=== PATIENT | female | born 1935 | race Caucasian/White ===

== ENCOUNTER 2019-10-03 11:54 | Emergency (ER) | payer MEDICAID ==
[~2019-10-03] VITALS: Ht 160 cm; Wt 52.2 kg
--- NOTE | 2019-10-03 11:54 | NUR ---
Patient BIBA ALS accompanied by Cuca AMADOR, transferred to bed 4. RN evaluating patient at bedside.
[2019-10-03 11:55] VITALS: BP 126/34
--- NOTE | 2019-10-03 12:03 | NUR ---
Dr. Garibay is evaluating the patient at bedside.
--- NOTE | 2019-10-03 12:04 | NUR ---
84/F FROM EMS FOR HYPOTENSION. EMS REPORTS THAT PATIENT TOOK HER RX OF LISINOPRIL AND WAS DOING LAUNDRY AND HAD A NEAR SYNCOPAL EPISODE. PT WAS RESPONSIVE TO PREHOSPITAL FLUID BOLUS CURRENT BP IS 120SBP. PMHX--HTN NKDA
--- NOTE | 2019-10-03 12:07 | NUR ---
SPOKE WITH ELIZABETH--HEATHER ASTORGA. UPDATED ON PT CONDITION. CONTACT INFO--[phone].
[2019-10-03] MEDS ORDERED: NACL 0.9% 1,000 ML IV ONE (12:10)
--- NOTE | 2019-10-03 12:26 | NUR ---
elevator technician at bedside.
[2019-10-03 12:27] LABS: BASOPHILS % (AUTO) 0.5 % (0.0-2.0); EOSINOPHILS # (AUTO) 0.1 K/uL (0-0.4); EOSINOPHILS % (AUTO) 0.7 % (0.0-4.0); HEMATOCRIT 32.8 % (36-48); LYMPHOCYTES # (AUTO) 1.5 K/uL (2.5-16.5); LYMPHOCYTES % (AUTO) 19.7 % (20.5-51.1); MEAN CORPUSCULAR HEMOGLOBIN 31 pg (27-31); MEAN CORPUSCULAR HGB CONC 33 g/dL (33-37); MEAN CORPUSCULAR VOLUME 91.4 fL (80-94); MONOCYTES # (AUTO) 0.7 K/uL (0.8-1.0); NEUTROPHILS # (AUTO) 5.2 K/uL (1.8-7.7); NEUTROPHILS % (AUTO) 69.1 % (42.2-75.2); PLATELET COUNT (AUTO) 253 K/uL (140-450); RED BLOOD CELL COUNT(AUTO) 3.59 MIL/uL (4.20-5.40); RED CELL DISTRIBUTION WIDTH 14.6 % (11.6-13.7); WHITE BLOOD COUNT (AUTO) 7.5 K/uL (4.8-10.8)
[2019-10-03 12:54] LABS: ALBUMIN 3.2 g/dL (3.4-5.0); ANION GAP 10.6 (8-16); ASPARTATE AMINOTRANSFERASE 21 U/L (15-37); CARBON DIOXIDE 27.8 mmol/L (21-32); CHLORIDE 100 mmol/L (98-107); CREATININE 0.9 mg/dL (0.6-1.3); GLUCOSE 112 mg/dL (74-106); POTASSIUM 4.4 mmol/L (3.5-5.1); SODIUM SERUM 134 mmol/L (136-145); TOTAL BILIRUBIN 0.3 mg/dL (0.0-1.0); UREA NITROGEN, BLOOD 19 mg/dL (7-18)
--- NOTE | 2019-10-03 14:46 | NUR ---
SPOKE WITH NIVETO ROMERO, SHE SAID SHE WORKS [employer]. 20-30 MIN AWAY AND JUST TO LET HER KNOW WHEN SHE IS READY TO BE PICKED UP.
--- NOTE | 2019-10-03 15:20 | NUR ---
SPOKE TO ELIZABETH ROMERO INFORMED THAT PATIENT IS READY FOR D/C--SHE IS [employer] 20-30MINS AWAY.
[2019-10-03 16:23] VITALS: BP 121/64
--- NOTE | 2019-10-03 16:24 | NUR ---
Patient discharged with v/s stable. Written and verbal after care instructions given and explained. Patient verbalized understanding. Ambulatory with steady gait. All questions addressed prior to discharge. Advised to follow up with PMD.
== END 2019-10-03 16:24 | disposition home or self-care (01) ==
LOC: MED 11:54
DX: R55 Syncope and collapse (principal); I10 Essential (primary) hypertension
CPT/HCPCS: 36415; 71045; 80053; 84484; 85025; 93005; 96360; 99285; J7030; Q0092

== ENCOUNTER 2020-07-19 11:56 | Emergency (ER) | payer MEDICAID ==
[~2020-07-19] VITALS: Ht 165.1 cm; Wt 63.5 kg
[2020-07-19 12:01] VITALS: BP 104/48
--- NOTE | 2020-07-19 12:05 | NUR ---
84 YEAR OLD FEMALE BIBA FROM HOME FOR BEING UNRESPONSIVE. PER EMS UPON ARRIVAL PT WAS UNRESPONSIVE, HR IN 40'S WITH AGONAL BREATHING. IN ROUTE PT WAS BEING BVM, THEN EMS STOPPED AND PT WAS ACTING NORMAL. PT ARRIVED, AOX4, BREATHING EVEN AND UNLABORED, SPO2 99% ON RA. BS 130. PT SKIN WARM AND DRY. PT ON MONITOR VS STABLE, ERMD AWARE OF PT STATUS. PMH - HTN ALLERGIES - NKA
[2020-07-19 12:52] LABS: BASOPHILS % (AUTO) 0.4 % (0.0-2.0); EOSINOPHILS # (AUTO) 0.1 K/uL (0-0.4); EOSINOPHILS % (AUTO) 1.4 % (0.0-4.0); HEMATOCRIT 33.9 % (36-48); HEMOGLOBIN 11.3 g/dL (12.0-16.0); MEAN CORPUSCULAR HEMOGLOBIN 31 pg (27-31); MEAN CORPUSCULAR HGB CONC 33 g/dL (33-37); MEAN CORPUSCULAR VOLUME 91.9 fL (80-94); MONOCYTES # (AUTO) 1.2 K/uL (0.8-1.0); MONOCYTES % (AUTO) 16.1 % (1.7-9.3); NEUTROPHILS # (AUTO) 5.1 K/uL (1.8-7.7); NEUTROPHILS % (AUTO) 68.1 % (42.2-75.2); PLATELET COUNT (AUTO) 211 K/uL (140-450); RED CELL DISTRIBUTION WIDTH 14.3 % (11.6-13.7); WHITE BLOOD COUNT (AUTO) 7.4 K/uL (4.8-10.8)
[2020-07-19 13:16] LABS: ALBUMIN 3.5 g/dL (3.4-5.0); ANION GAP 11.6 (8-16); ASPARTATE AMINOTRANSFERASE 24 U/L (15-37); CARBON DIOXIDE 26.4 mmol/L (21-32); CHLORIDE 99 mmol/L (98-107); GLUCOSE 133 mg/dL (74-106); SODIUM SERUM 132 mmol/L (136-145); TOTAL BILIRUBIN 0.3 mg/dL (0.0-1.0); UREA NITROGEN, BLOOD 32 mg/dL (7-18)
--- NOTE | 2020-07-19 13:38 | NUR ---
Patient transferred to bed 9 for further care. RN evaluating patient at bedside.
--- NOTE | 2020-07-19 13:48 | NUR ---
Yasmin giles in [facility] - 07/19/20 at 1508 by MEDJJ LINA AND BRYCE SWAB SENT TO LAB
[2020-07-19] MEDS ORDERED: NACL 0.9% 1,000 ML IV ONE (15:00)
--- NOTE | 2020-07-19 15:08 | NUR ---
COVID AND BRYCE SWAB SENT TO LAB
[2020-07-19 15:45] LABS: APPEARANCE,URINE HAZY (CLEAR); BILIRUBIN,URINE NEGATIVE (NEGATIVE); BLOOD, URINE 2+ (NEGATIVE); COLOR,URINE YELLOW (YELLOW); LEUKOCYTE ESTERASE ,URINE 1+ (NEGATIVE); NITRITE, URINE POSITIVE (NEGATIVE); UGLUCOSE NEGATIVE (NEGATIVE)
[2020-07-19 16:00] VITALS: BP 104/48
--- NOTE | 2020-07-19 16:00 | NUR ---
Patient discharged with v/s stable. Written and verbal after care instructions about syncope given and explained in wolof. Patient verbalized understanding. Ambulatory with steady gait. All questions addressed prior to discharge. Advised to follow up with PMD.
[2020-07-19 16:50] LABS: RBC,URINE 11-20 (MOD) /HPF (0-5)
== END 2020-07-19 16:00 | disposition home or self-care (01) ==
LOC: MED 11:56
DX: R55 Syncope and collapse (principal); Z20.828 Contact with and (suspected) exposure to other viral communicable diseases; D64.9 Anemia, unspecified; I10 Essential (primary) hypertension
CPT/HCPCS: 70450; 71045; 80053; 81001; 84484; 85025; 87086; 87426; 93005; 96360; 99285; U0003; J7030

== ENCOUNTER 2020-07-24 09:22 | Emergency (ER) | payer MEDICAID ==
[~2020-07-24] VITALS: Ht 157.5 cm; Wt 49.9 kg
[2020-07-24 09:33] VITALS: BP 97/48
[2020-07-24] MEDS ORDERED: NACL 0.9% 500 ML IV SCH (09:50)
[2020-07-24 11:08] LABS: BASOPHILS % (AUTO) 0.2 % (0.0-2.0); EOSINOPHILS % (AUTO) 0.1 % (0.0-4.0); HEMATOCRIT 32.6 % (36-48); HEMOGLOBIN 10.9 g/dL (12.0-16.0); LYMPHOCYTES # (AUTO) 0.6 K/uL (2.5-16.5); LYMPHOCYTES % (AUTO) 12.2 % (20.5-51.1); MEAN CORPUSCULAR HEMOGLOBIN 31 pg (27-31); MEAN CORPUSCULAR HGB CONC 34 g/dL (33-37); MEAN CORPUSCULAR VOLUME 90.8 fL (80-94); MONOCYTES # (AUTO) 0.4 K/uL (0.8-1.0); MONOCYTES % (AUTO) 9.5 % (1.7-9.3); NEUTROPHILS # (AUTO) 3.7 K/uL (1.8-7.7); PLATELET COUNT (AUTO) 153 K/uL (140-450); RED BLOOD CELL COUNT(AUTO) 3.59 MIL/uL (4.20-5.40); RED CELL DISTRIBUTION WIDTH 14.4 % (11.6-13.7); WHITE BLOOD COUNT (AUTO) 4.7 K/uL (4.8-10.8)
[2020-07-24 11:13] LABS: PROTHROMBIN TIME 9.8 secs (10.8-13.4)
[2020-07-24 11:29] LABS: ANION GAP 13.7 (8-16); CARBON DIOXIDE 23.2 mmol/L (21-32); CHLORIDE 98 mmol/L (98-107); POTASSIUM 3.9 mmol/L (3.5-5.1); SODIUM SERUM 131 mmol/L (136-145)
[2020-07-24 11:30] LABS: ALBUMIN 3.2 g/dL (3.4-5.0); ASPARTATE AMINOTRANSFERASE 38 U/L (15-37); CREATININE 0.9 mg/dL (0.6-1.3); GLUCOSE 128 mg/dL (74-106); TOTAL BILIRUBIN 0.3 mg/dL (0.0-1.0); UREA NITROGEN, BLOOD 24 mg/dL (7-18)
[2020-07-24 12:28] LABS: BILIRUBIN,URINE NEGATIVE (NEGATIVE); BLOOD, URINE 2+ (NEGATIVE); COLOR,URINE YELLOW (YELLOW); LEUKOCYTE ESTERASE ,URINE 1+ (NEGATIVE); NITRITE, URINE NEGATIVE (NEGATIVE); UGLUCOSE NEGATIVE (NEGATIVE)
[2020-07-24 12:46] LABS: APPEARANCE,URINE HAZY (CLEAR)
[2020-07-24 15:30] VITALS: BP 128/60
== END 2020-07-24 15:32 | disposition home or self-care (01) ==
LOC: MED 09:22
DX: R41.82 Altered mental status, unspecified (principal); R68.0 Hypothermia, not associated with low environmental temperature; I10 Essential (primary) hypertension
CPT/HCPCS: 36415; 36600; 71045; 80053; 81001; 82803; 83605; 83880; 84484; 85025; 85610; 85730; 87040; 87086; 93005; 99285

== ENCOUNTER 2020-07-28 09:15 | Inpatient (IN) | payer MEDICAID, SELFPAY ==
[~2020-07-28] VITALS: Ht 147.3 cm; Wt 45.4 kg
[2020-07-28 09:17] VITALS: BP 102/52
[2020-07-28] MEDS ORDERED: NACL 0.9% 1,000 ML IV ONE (09:20)
[2020-07-28 09:48] LABS: BASOPHILS % (AUTO) 0.4 % (0.0-2.0); EOSINOPHILS % (AUTO) 0.1 % (0.0-4.0); HEMATOCRIT 34.6 % (36-48); HEMOGLOBIN 11.5 g/dL (12.0-16.0); LYMPHOCYTES # (AUTO) 0.8 K/uL (2.5-16.5); LYMPHOCYTES % (AUTO) 16.8 % (20.5-51.1); MEAN CORPUSCULAR HEMOGLOBIN 30 pg (27-31); MEAN CORPUSCULAR HGB CONC 33 g/dL (33-37); MEAN CORPUSCULAR VOLUME 90.1 fL (80-94); MONOCYTES # (AUTO) 0.5 K/uL (0.8-1.0); MONOCYTES % (AUTO) 10.1 % (1.7-9.3); NEUTROPHILS # (AUTO) 3.3 K/uL (1.8-7.7); NEUTROPHILS % (AUTO) 72.6 % (42.2-75.2); PLATELET COUNT (AUTO) 175 K/uL (140-450); RED BLOOD CELL COUNT(AUTO) 3.84 MIL/uL (4.20-5.40); RED CELL DISTRIBUTION WIDTH 14.2 % (11.6-13.7); WHITE BLOOD COUNT (AUTO) 4.6 K/uL (4.8-10.8)
--- NOTE | 2020-07-28 09:58 | NUR ---
84 YO F BIBA FROM HOME C/O LOW BLOOD PRESSURE AND DIFFICULTY AROUSING FROM SLEEP. PER PT, SHE EXPERIENCED BLURRING OF VISON X 10MINS THIS AM. PT TESTED COVID + LAST WEEK, BUT DENIES ANY SYMPTOMS AT THE MOMENT. IN ED, AOX4. GCS 15. BP IS 102/52. PT NOT IN ACUTE DISTRESS. BREATH SOUNDS CLEAR. NORMAL HEART RATE AND RHYTHM. PT RESTING IN BED COMFORTABLY, WITH 2 SIDERAILS UP. ERMD MADE AWARE OF PT STATUS. PMH: HTN NKA
--- NOTE | 2020-07-28 10:15 | NUR ---
PT UNABLE TO PRODUCE URINE SPECIMEN AT THIS TIME
[2020-07-28 11:02] LABS: ALBUMIN 3.2 g/dL (3.4-5.0); ANION GAP 11.9 (8-16); ASPARTATE AMINOTRANSFERASE 138 U/L (15-37); CARBON DIOXIDE 24.1 mmol/L (21-32); CHLORIDE 98 mmol/L (98-107); CREATININE 0.9 mg/dL (0.6-1.3); GLUCOSE 105 mg/dL (74-106); SODIUM SERUM 130 mmol/L (136-145); TOTAL BILIRUBIN 0.4 mg/dL (0.0-1.0); UREA NITROGEN, BLOOD 17 mg/dL (7-18)
[2020-07-28] MEDS ORDERED: cefTRIAXone 1,000 MG VIAL ONE (11:40)
--- NOTE | 2020-07-28 13:11 | NUR ---
NOVEL SWAB DONE. WALKED TO LAB.
[2020-07-28] MEDS ORDERED: ACETAMINOPHEN 325 MG TAB PO PRN (14:20)
[2020-07-28] MEDS ORDERED: POTASSIUM CHLORIDE 10 MEQ TABER PO PRN (14:20)
[2020-07-28] MEDS ORDERED: ONDANSETRON 4 MG/2 ML VIAL IM/IVP PRN (14:20)
[2020-07-28] MEDS ORDERED: DOCUSATE SODIUM 100 MG GELCAP PO PRN (14:20)
[2020-07-28] MEDS ORDERED: HYDROcodone/APAP 7.5/325 MG 1 TAB PO PRN (14:20)
[2020-07-28 15:28] LABS: PROTHROMBIN TIME 9.1 secs (10.8-13.4)
--- NOTE | 2020-07-28 15:51 | NUR ---
BRYCE SWAB DONE. WALKED TO LAB.
[2020-07-28] MEDS ORDERED: ALBUTEROL HFA MDI 90 MCG/ACTUATION 8 GM INH PRN (16:00)
[2020-07-28 16:13] LABS: CHOL/HDL RATIO 2.5 (1-4.5); FREE T4 (FREE THYROXINE) 1.29 ng/dL (0.76-1.46); MAGNESIUM 2.1 mg/dL (1.8-2.4); PHOSPHORUS 3.5 mg/dL (2.5-4.9); THYROID STIMULATING HORMONE 2.23 uIU/mL (0.34-3.74)
--- NOTE | 2020-07-28 16:15 | NUR ---
Ultrasound at bedside.
--- NOTE | 2020-07-28 19:12 | NUR ---
REPORT GIVEN TO CHAN CARRERA. ALL CARE TRANSFERRED AT THIS TIME.
--- NOTE | 2020-07-28 19:14 | NUR ---
RECEIVED REPORT FROM ANNABELLE GILES
--- NOTE | 2020-07-28 19:30 | NUR ---
PT RESTING IN BED, PT ON BEDSIDE MONITOR. DENINES ANY DISTRESS AT THIS TIME. PT'S TEMP 99.9 WILL MEDICATE FOR ELEVATED TEMP
--- NOTE | 2020-07-28 19:39 | NUR ---
MEDICATED WITH TYLENOL 650MG FOR TEMP 99.9
--- NOTE | 2020-07-28 19:59 | NUR ---
FAMILY FOR BED 2 CALLED TO LEAVE THEIR NUMBER FOR ANY UPDATES. HEATHER [phone]
--- NOTE | 2020-07-28 20:28 | NUR ---
PT PROVIDED WITH DINNER TRAY
--- NOTE | 2020-07-28 21:51 | NUR ---
TEMP 98.1 NOW. PT ATE 60% OF HER DINNER TRAY
--- NOTE | 2020-07-28 22:20 | NUR ---
PT DOES HAVE A HEADACHE WILL MEDICATE ORDERED
[2020-07-28 22:30] VITALS: BP 144/75
--- NOTE | 2020-07-28 22:45 | NUR ---
Patient will be admitted to care of [facility]. Admited to TELE. Will go to room 101A. Belongings list completed. Report to ALEJANDRO GILES.
--- NOTE | 2020-07-28 22:50 | NUR ---
ADMITTED THIS 84 YEAR OLD FEMALE FROM ER PER COURTNEY WITH CC OF ALOC AND LOW BP, PT AAOX4, ABLE TO MAKE NEEDS KNOWN, ON DROPLET PRECAUTION FOR COVID POSITIVE, VITAL SIGNS STABLE, SR ON TELE, DENIES ANY PAIN, ORIENTED TO ROOM AND CALL LIGHT, SAFETY MEASURES IN PLACE, CALL LIGHT WITHIN REACH.
[2020-07-29] VITALS: BP 125/56
--- NOTE | 2020-07-29 02:30 | NUR ---
SEEN PT SLEEPING, NO SIGNS OF RESP DISTRESS, MONITORED CLOSELY.
[2020-07-29 04:00] VITALS: BP 133/62
--- NOTE | 2020-07-29 05:10 | NUR ---
PT AMBULATED TO BR WITH MINIMAL ASSIST, VOIDED FREELY, PT WENT BACK TO SLEEP, MONITORED CLOSELY.
[2020-07-29 07:01] LABS: BASOPHILS % (AUTO) 0.3 % (0.0-2.0); EOSINOPHILS % (AUTO) 0.2 % (0.0-4.0); HEMATOCRIT 31.9 % (36-48); HEMOGLOBIN 10.9 g/dL (12.0-16.0); LYMPHOCYTES # (AUTO) 0.7 K/uL (2.5-16.5); LYMPHOCYTES % (AUTO) 15.4 % (20.5-51.1); MEAN CORPUSCULAR HEMOGLOBIN 31 pg (27-31); MEAN CORPUSCULAR HGB CONC 34 g/dL (33-37); MEAN CORPUSCULAR VOLUME 89.7 fL (80-94); MONOCYTES # (AUTO) 0.4 K/uL (0.8-1.0); MONOCYTES % (AUTO) 9.5 % (1.7-9.3); NEUTROPHILS # (AUTO) 3.2 K/uL (1.8-7.7); NEUTROPHILS % (AUTO) 74.6 % (42.2-75.2); PLATELET COUNT (AUTO) 170 K/uL (140-450); RED BLOOD CELL COUNT(AUTO) 3.56 MIL/uL (4.20-5.40); RED CELL DISTRIBUTION WIDTH 14.2 % (11.6-13.7); WHITE BLOOD COUNT (AUTO) 4.3 K/uL (4.8-10.8)
--- NOTE | 2020-07-29 07:15 | NUR ---
HANDOFF REPORT FROM BREAKFAST BAR ATTENDANT RN. POC REVIEWED AND DISCUSSED. PT IS ALERT, FOLLOWS SIMPLE COMMAND. DENIES PAIN. NO SOB NOTED. PT ON ROOM AIR. AFEBRILE. FALL PRECAUTION INITIATED. CALL LIGHT WITHIN REACH. WILL CONTINUE TO MONITOR.
--- NOTE | 2020-07-29 07:30 | NUR ---
PT AWAKE, NO SIGNS OF DISTRESS, REPORT GIVEN TO RN TAMMIE FOR CONTINUITY OF CARE.
[2020-07-29 07:34] LABS: CARBON DIOXIDE 22.9 mmol/L (21-32); CHLORIDE 104 mmol/L (98-107); CREATININE 0.8 mg/dL (0.6-1.3); GLUCOSE 82 mg/dL (74-106); POTASSIUM 3.9 mmol/L (3.5-5.1); SODIUM SERUM 137 mmol/L (136-145); UREA NITROGEN, BLOOD 18 mg/dL (7-18)
[2020-07-29 08:00] VITALS: BP 145/94
[2020-07-29 08:08] LABS: T4 (THYROXINE) 8.1 ug/dL (4.5-12.0)
--- NOTE | 2020-07-29 09:00 | NUR ---
PHYSICAL THERAPY DONE. PT TOLERATED WELL WITH NO SIGNS OF DISTRESS.
--- NOTE | 2020-07-29 09:08 | NUR ---
PATIENT HAS BEEN SCREENED AND CATEGORIZED MODERATE NUTRITION RISK. PATIENT WILL BE SEEN WITHIN 3-5 DAYS OF ADMISSION. 07/31/20 08/02/[address]
[2020-07-29] MEDS: AZITHROMYCIN 250 MG TAB PO SCH (09:21)
[2020-07-29] MEDS: ZINC SULF 220 MG CAP PO SCH (09:21)
[2020-07-29] MEDS: ASCORBIC ACID 500 MG TAB PO SCH (09:21)
--- NOTE | 2020-07-29 09:27 | NUR ---
SOCIAL WORK NOTE: Patient's Orientation Unable To Assess Information Provided By HEATHER ONEILL Comments SW WAS UNABLE TO MEET PATIENT AT BEDSIDE. SW COMPLETED ASSESSMENT WITH PATIENT'S NIECE. Data Governance Consultant, Realtionship and Phone Number HEATHER ONEILL [phone] Healthcare Power of Grounds Crew Supervisor No Does Patient Have a POLST No Identifying Problems No Social Work Triggers Is A Social Work Consult Needed No Mandate Report Filed No Explanation Of Identifying Problems PATIENT IS AN 84-YEAR-OLD FEMALE ADMITTED FOR METABOLIC ENCEPHALOPATHY. PATIENT HAS PMHX OF HYPERTENSION. Admitted From Home Pre-Admission Level Of Functioning Status Independent/Ambulatory Prior Resources/Services Used In Last 12 Months No Prior Resources Used Prior DME No Prior DME Used Dialysis Comments N/A Living Situation Lives With Family House Patient Had Caregiver No Home Support No Caregiver Issues Financial Issues No Known Financial Issue Referral To The Financial Counselor Needed No Factors/Needs No D/C Needs Identified Pt/Rep Participated In Discharge Plan Yes Patient/Family Agress With Discharge Plan Yes Discharge Plan Comments TENTATIVE DISCHARGE PLAN IS FOR PATIENT TO RETURN HOME. DC Plan Status Initiated
[2020-07-29 12:00] VITALS: BP 114/69
--- NOTE | 2020-07-29 12:00 | NUR ---
PT IS RESTING AND CALM. ASSISTED PT TO USE BED LONGO. PT DENIES DISCOMFORT. KEPT PT ON ISOLATION PRECAUTION.
--- NOTE | 2020-07-29 12:01 | NUR ---
DISCHARGE PLANNING: THIS IS AN 84 Y/O FEMALE PATIENT BIBA FROM HOME DUE TO ALTERED MENTAL STATUS. PAST MEDICAL HISTORY INCLUDE HTN. INITIAL DIAGNOSIS OF METABOLIC ENCEPHALOPATHY, POSSIBLE COVID 19, PNA. CURRENT LABS INCLUDE WBC 4.3, H/H 10.9/31.9, BNP 611. COVID RAPID POSITIVE, PCR PENDING. ON ROCEPHIN, AZITHROMYCIN, DECADRON AND HEPARIN. ON ROOM AIR. O2 SAT 98%. PULMO AND ID CONSULTS IN PLACE. DC PLAN PENDING ON PATIENT'S RESPONSE TO TREATMENT. DOWNGRADED TO MED SURG TODAY.
[2020-07-29] MEDS: FUROSEMIDE 20 MG/2 ML VIAL IVP SCH ×2 (14:57→20:26)
[2020-07-29 16:00] VITALS: BP 160/60
--- NOTE | 2020-07-29 16:00 | NUR ---
NO CHANGE OF CONDITION. PT'S IS CLOSED. NO S/S OF RESPIRATORY DISTRESS.
--- NOTE | 2020-07-29 19:05 | NUR ---
RECEIVED BEDSIDE REPORT FROM DAY SHIFT NURSE FOR CONTINUITY OF CARE. PT IS AWAKE AND ALERT, CITIZEN OF [place] SPEAKING. LAYING IN SEMI FOWLERS POSITION. ON RA WITH BREATHING UNLABORED. MED-SURG PATIENT. AMBULATORY WITH ASSISTANCE, CONTINENT. SKIN IS WARM, DRY, AND INTACT. IV IS IN THE LEFT HAND 22 GAUGE SALINE LOCKED. DROPLET PRECAUTION FOR COVID POSITIVE. PT IS STABLE. PLAN OF CARE DISCUSSED.
[2020-07-29 20:00] VITALS: BP 133/61
--- NOTE | 2020-07-29 20:00 | NUR ---
COOLING MEASURES WERE PLACED FOR TEMP OF 99.3 F. ICE PACKS PLACED UNDERNEATH ARMPITS AND BACK OF NECK. BLANKETS REMOVED. WILL MONITOR.
--- NOTE | 2020-07-29 20:06 | NUR ---
HANDOFF REPORT GIVEN TO MILLROOM SUPERVISOR RN. POC REVIEWED AND DISCUSSED. ENDORSED PT WITH NO CHANGE OF CONDITION.
--- NOTE | 2020-07-29 21:00 | NUR ---
PT WAS ASSISTED TO THE BEDPAN TO VOID. LINENS WERE CHANGED. PT TOLERATED IT WELL.
--- NOTE | 2020-07-29 22:49 | NUR ---
ROUNDED ON PT. SHE IS SLEEPING. NO RESPIRATORY DISTRESS NOTED. ON RA WITH BREATHING UNLABORED. PT APPEARS TO BE CALM AND RELAXED. CHEST RISE AND FALL IS SYMMETRICAL.
--- NOTE | 2020-07-30 00:30 | NUR ---
ROUNDED ON PT. SHE IS ASLEEP IN SEMI FOWLERS POSITION. BREATHING IS UNLABORED ON RA. CHEST RISE AND FALL IS SYMMETRICAL. PT IS STABLE. WILL CONTINUE TO MONITOR.
--- NOTE | 2020-07-30 02:30 | NUR ---
PT IS ASSISTED TO THE BEDPAN. PT VOIDED. PT TOLERATED MOVEMENT WELL. NO DISTRESS NOTED.
[2020-07-30 04:00] VITALS: BP 135/50
--- NOTE | 2020-07-30 04:30 | NUR ---
PT IS SLEEPING. NO RESPIRATORY DISTRESS NOTED. NO PAIN APPARENT. PT IS RESTING COMFORTABLY IN SEMI FOWLERS POSITION. CALL LIGHT IS WITHIN REACH. PT IS STABLE AT THIS TIME.
--- NOTE | 2020-07-30 06:30 | NUR ---
PT IS AWAKE AND SPEAKING APPROPRIATELY. A&OX4. PT DENIES PAIN OR DISCOMFORT AT THIS TIME. PT IS STABLE.
--- NOTE | 2020-07-30 07:05 | NUR ---
ENDORSED PT TO DAY SHIFT NURSE FOR CONTINUITY OF CARE. PT IS STABLE. PLAN OF CARE DISCUSSED.
--- NOTE | 2020-07-30 07:07 | NUR ---
RECEIVED BEDSIDE REPORT FROM PHYSIOLOGIST NURSE FOR CONTINUITY OF CARE. PT IS AWAKE AND ALERT, IRISH SPEAKING. LAYING IN SEMI FOWLERS POSITION. ON RA WITH BREATHING UNLABORED. NO DISTRESS NOTED. AMBULATORY WITH ASSISTANCE, CONTINENT. SKIN IS WARM, DRY, AND INTACT. IV SITE IS LH 22 GAUGE SALINE LOCKED. DROPLET PRECAUTION FOR COVID POSITIVE. PT IS STABLE. PLAN OF CARE DISCUSSED. SAFETY PRECAUTIONS IN PLACE. BED IN LOW POSITION. CALL LIGHT WITHIN REACH. WILL CONTINUE TO MONITOR.
[2020-07-30 08:00] VITALS: BP 132/82
[2020-07-30] MEDS: ASCORBIC ACID 500 MG TAB PO SCH (09:59)
[2020-07-30] MEDS: FUROSEMIDE 20 MG/2 ML VIAL IVP SCH ×2 (10:00→20:41)
[2020-07-30] MEDS: AZITHROMYCIN 250 MG TAB PO SCH (10:01)
[2020-07-30] MEDS: ZINC SULF 220 MG CAP PO SCH (10:01)
--- NOTE | 2020-07-30 10:10 | NUR ---
ALL SCHEDULED MEDS GIVEN. PT IS STABLE. NO RESPIRATORY DISTRESS NOTED. WILL CONTINUE TO MONITOR.
[2020-07-30 12:00] VITALS: BP 111/64
--- NOTE | 2020-07-30 12:00 | NUR ---
CHECKED ON PATIENT. PT IS LAYING IN BED. NO S/S OF RESPIRATORY DISTRESS NOTED. WILL CONTINUE TO MONITOR.
--- NOTE | 2020-07-30 14:00 | NUR ---
CHECKED ON PATIENT. PT IS LAYING IN BED. NO S/S OF RESPIRATORY DISTRESS NOTED. WILL CONTINUE TO MONITOR.
[2020-07-30 16:00] VITALS: BP 113/82
--- NOTE | 2020-07-30 16:00 | NUR ---
PATIENT AND AWAKE. NO DISTRESS NOTED. DENIES PAIN. WILL CONTINUE TO MONITOR.
--- NOTE | 2020-07-30 19:05 | NUR ---
RECEIVED BEDSIDE REPORT FROM DAY SHIFT NURSE FOR CONTINUITY OF CARE. PT IS AWAKE AND ALERT, A&OX4. ON RA WITH BREATHING UNLABORED. PT IS AMBULATORY WITH ASSISTANCE. PT IS CONTINENT. SKIN IS WARM, DRY, AND INTACT. IV IS IN THE LEFT HAND 22 GAUGE SALINE LOCKED. PT IS STABLE AT THIS TIME. PLAN OF CARE DISCUSSED.
--- NOTE | 2020-07-30 19:30 | NUR ---
ENDORSED TO BIOMASS PLANT MANAGER NURSE FOR CONTINUITY OF CARE. PT IS STABLE.
[2020-07-30 20:00] VITALS: BP 113/72
--- NOTE | 2020-07-30 20:55 | NUR ---
RECEIVED COVID RESULTS FROM HEAD MVA REACTOR OPERATOR. POSITIVE FOR COVID PCR. PT IS ALREADY COVID POSITIVE RAPID TEST.
--- NOTE | 2020-07-30 21:30 | NUR ---
PT WAS ASSISTED ON THE BEDPAN. PT VOIDED AND LINENS WERE CHANGED. PT WAS PROVIDED MORE BLANKETS. PT IS STABLE. NO RESPIRATORY DISTRESS NOTED.
--- NOTE | 2020-07-30 23:23 | NUR ---
PT IS SLEEPING. CHEST RISE AND FALL SYMMETRICAL. BREATHING IS UNLABORED ON RA. IV IS SALINE LOCKED. BED IS IN THE LOWEST POSITION.
--- NOTE | 2020-07-31 01:30 | NUR ---
PT IS SLEEPING, COMFORTABLY IN SEMI FOWLERS POSITION. PT IS STABLE. NO SOB OR RAPID BREATHING NOTED. CHEST RISE AND FALL SYMMETRICAL. WILL CONTINUE TO MONITOR.
--- NOTE | 2020-07-31 03:06 | NUR ---
ASSISTED PT ONTO THE BEDPAN. PT VOIDED AND WAS CLEANED. PT WAS REPOSITIONED. PT TOLERATES MOVEMENT WELL.
[2020-07-31 04:00] VITALS: BP 115/57
--- NOTE | 2020-07-31 05:00 | NUR ---
PT IS RESTING COMFORTABLY IN SEMI FOWLERS POSITION. NO COUGH OR SOB NOTED. PT STATES SHE IS OKAY RIGHT NOW. PT IS STABLE.
--- NOTE | 2020-07-31 07:05 | NUR ---
ENDORSED PT TO DAY SHIFT NURSE FOR CONTINUITY OF CARE. PT IS STABLE AT THIS TIME. PLAN OF CARE DISCUSSED.
--- NOTE | 2020-07-31 07:06 | NUR ---
RECEIVED REPORT FROM DURABILITY ENGINEER NURSE. PATIENT IN STABLE CONDITION.
[2020-07-31 08:00] VITALS: BP 132/56
[2020-07-31 08:39] LABS: BASOPHILS % (AUTO) 0.2 % (0.0-2.0); HEMATOCRIT 33.8 % (36-48); HEMOGLOBIN 11.5 g/dL (12.0-16.0); LYMPHOCYTES # (AUTO) 0.3 K/uL (2.5-16.5); LYMPHOCYTES % (AUTO) 13.2 % (20.5-51.1); MEAN CORPUSCULAR HEMOGLOBIN 30 pg (27-31); MEAN CORPUSCULAR HGB CONC 34 g/dL (33-37); MEAN CORPUSCULAR VOLUME 88.5 fL (80-94); MONOCYTES # (AUTO) 0.5 K/uL (0.8-1.0); MONOCYTES % (AUTO) 19.4 % (1.7-9.3); NEUTROPHILS # (AUTO) 1.6 K/uL (1.8-7.7); NEUTROPHILS % (AUTO) 67.2 % (42.2-75.2); PLATELET COUNT (AUTO) 232 K/uL (140-450); RED BLOOD CELL COUNT(AUTO) 3.82 MIL/uL (4.20-5.40); RED CELL DISTRIBUTION WIDTH 14.4 % (11.6-13.7); WHITE BLOOD COUNT (AUTO) 2.4 K/uL (4.8-10.8)
[2020-07-31] MEDS: AZITHROMYCIN 250 MG TAB PO SCH (08:45)
[2020-07-31] MEDS: ASCORBIC ACID 500 MG TAB PO SCH (08:45)
[2020-07-31] MEDS: ZINC SULF 220 MG CAP PO SCH (08:45)
[2020-07-31] MEDS: FUROSEMIDE 20 MG/2 ML VIAL IVP SCH (08:45)
--- NOTE | 2020-07-31 08:49 | NUR ---
SCHEDULED MEDICATIONS DUE GIVEN. WILL CONTINUE TO MONITOR.
[2020-07-31 08:55] LABS: ANION GAP 15.4 (8-16); CARBON DIOXIDE 25.2 mmol/L (21-32); CHLORIDE 100 mmol/L (98-107); GLUCOSE 133 mg/dL (74-106); POTASSIUM 3.6 mmol/L (3.5-5.1); SODIUM SERUM 137 mmol/L (136-145); UREA NITROGEN, BLOOD 28 mg/dL (7-18)
[2020-07-31] MEDS ORDERED: AZIT250T3 PO (10:13)
[2020-07-31] MEDS ORDERED: DEC1 PO (10:13)
[2020-07-31] MEDS ORDERED: ASPI-1205 PO (10:13)
--- NOTE | 2020-07-31 11:30 | NUR ---
ASSISTED PATIENT IN TRANSFERRING TO BEDSIDE CHAIR PER PT REQUEST. WILL CONTINUE TO MONITOR.
--- NOTE | 2020-07-31 13:00 | NUR ---
DISCHARGE INSTRUCTIONS PROVIDED TO PATIENT AND NIECE HEATHER ON THE PHONE. PATIENT PREFERS NIECE TO TRANSLATE OVER THE PHONE. INSTRUCTIONS ON NEW/CHANGED MEDICATION REGIMEN, DIET REGIMEN, COVID PRECAUTIONS AT HOME, AND FOLLOW-UP WITH PCP IN 3-5 DAYS. ANSWERED ALL OF PATIENT/NIECE QUESTIONS REGARDING DISCHARGE. AWAITING FOR TO PICKUP PATIENT AROUND [phone]. WILL CONTINUE TO MONITOR.
--- NOTE | 2020-07-31 15:00 | NUR ---
PATIENT'S RIDE ARRANGED BY FAMILY AT [employer] [facility] FOR THE [employer], ESCORTED PATIENT DOWN TO [employer] [facility] FOR THE [facility] VIA WHEELCHAIR. PATIENT DISCHARGED TO HOME AT THIS TIME IN STABLE CONDITION.
== END 2020-07-31 15:00 | disposition home or self-care (01) | DRG 137 ==
LOC: MED 09:15 → MTU 14:27 → MMU 22:03
PROVIDERS: ADMIT Emergency Medicine; ATTEND Emergency Medicine
DX: U07.1 COVID-19 (principal); G93.41 Metabolic encephalopathy; D68.59 Other primary thrombophilia; D32.9 Benign neoplasm of meninges, unspecified; D64.9 Anemia, unspecified; J12.82 Pneumonia due to coronavirus disease 2019; I50.43 Acute on chronic combined systolic (congestive) and diastolic (congestive) heart failure
CPT/HCPCS: 36415; 70450; 71045; 80048; 80053; 83036; 83690; 83735; 83880; 84100; 84436; 84439; 84443; 84479; 84484; 85025; 85610; 85730; 87040; 87081; 87086; 93005; 93880; 96361; 96365; 97110; 97116; 97161-GP; 97530; 99285; J0696; J1644; J1940; J7030; J7060; U0003